=== PATIENT | male | born 1995 | race Hispanic/Latino ===

== ENCOUNTER 2017-04-01 16:48 | Emergency (ER) | payer OTHER, SELFPAY | END 2017-04-01 17:12 | LOC: NAV ERS 16:48 | DX: F10.129 Alcohol abuse with intoxication, unspecified (principal); S00.01XA Abrasion of scalp, initial encounter; Y04.0XXA Assault by unarmed brawl or fight, initial encounter | CPT/HCPCS: 36415; 99284 ==